=== PATIENT | female | born 1950 | race Caucasian/White ===

== ENCOUNTER 2016-07-09 17:54 | Emergency (ER) | payer OTHER ==
[2016-07-09 18:07] VITALS: O2SAT 95
--- NOTE | 2016-07-09 18:38 | EDPHY ---
H & P Time Seen by Provider: 07/09/16 18:13 HPI/ROS: CHIEF COMPLAINT: Headache, facial pain HISTORY OF PRESENT ILLNESS: Patient is a 65-year-old female who presents emergency department after having a mechanical fall on Tuesday. Patient states she tripped and landed on the left side of her face. She did not lose consciousness. She has had no nausea or vomiting. She has had a gradual increase in headache. She also complains of mild left facial pain. Denies malocclusion. No neck pain. No weakness or numbness. REVIEW OF SYSTEMS: My complete review of systems is negative except as mentioned in the HPI. Past Medical/Surgical History: Includes bipolar disorder, anxiety, depression, hypothyroidism Social history: The patient denies smoking or drinking Smoking Status: Never smoked Physical Exam: Vitals noted GENERAL: Well-appearing, in no acute distress, alert. HEAD: No evidence of trauma. EYES: PERRLA, EOMI, normal to inspection. ENT: Airway intact, no dental or oral injury, no malocclusion, no hemotympanum , normal external examination. Patient has a mild abrasion to her left upper lip. Mild tenderness to palpation over her left forehead and left zygomatic arch. NECK: The trachea is midline. There is no crepitus. The C-spine is nontender. NEXUS criteria is negative (no midline tenderness, no distracting injury, no altered mental status, no recent alcohol use, no focal neurologic deficit). RESPIRATORY: Clear to auscultation bilaterally, no rales, rhonchi or wheezing. There is no crepitus or palpable rib fractures. CVS: Regular rate and rhythm, no rubs, murmurs, or gallops. ABDOMEN: Soft, nontender, nondistended, normal bowel sounds, no bruising or abrasions. Pelvis: Stable. No tenderness palpation. Hips full range of motion. GENITAL/RECTAL: Normal external exam. BACK: Normal to inspection, no spinal tenderness, no spinal step off, no notable bruising or abrasions. SKIN: Normal color, warm, dry. No pallor or diaphoresis. EXTREMITIES: Atraumatic, neurovascularly intact distally in all extremities, pelvis is stable , hips with full range of motion, moves all extremities freely. NEURO/PSYCH: Alert and oriented x 3, GCS 15, normal mood and affect, normal motor sensory exam. Constitutional: Initial Vital Signs Temperature (C) 36.5 C 07/09/16 17:57 Heart Rate 74 07/09/16 17:57 Respiratory Rate 18 07/09/16 17:57 Blood Pressure 141/92 H 07/09/16 17:57 O2 Sat (%) 95 07/09/16 17:57 O2 Delivery Mode Room Air Allergies/Adverse Reactions: Sulfa (Sulfonamide Antibiotics) Allergy (Unknown, Verified 07/09/16 18:01) as child Home Medications: Medication Instructions Recorded Celexa 08/26/13 LaMICtal 08/26/13 Atorvastatin Calcium [Lipitor 40 40 mg PO 07/09/16 mg (*)] Levothyroxine [Synthroid 100 mcg 100 mcg PO DAILY06 07/09/16 (*)] Medical Decision Making ED Course/Re-evaluation: In the emergency department I discussed possible etiologies with the patient. She consented to head and maxillofacial CT. Head CT/maxillofacial CT: No acute disease noted. Please refer the dictated report by the radiologist. Dr. Mares. I discussed the results with the patient. I answered all her questions. She was given warnings prior to leaving. She will return with worsening symptoms. Differential Diagnosis: My differential includes but is not limited to facial contusion, facial fracture , subarachnoid hemorrhage, subdural hematoma, epidural hematoma Departure - Departure Disposition: Home, Routine, Self-Care Clinical Impression: Facial contusion Qualifiers: Encounter type: initial encounter Qualified Code(s): S00.83XA - Contusion of other part of head, initial encounter Condition: Good Instructions: Facial Contusion (ED) Additional Instructions: Return with increasing headache, vomiting, weakness, numbness or any other concerns. Referrals: Prince Hedrick MD [Primary Care Provider] - 2-3 days, call for appt.
[2016-07-09 19:19] VITALS: BP 133/73; PULSE 67; RESP 20; TEMP 98.2
== END 2016-07-09 19:21 | disposition home or self-care (01) ==
DX: S00.83XA Contusion of other part of head, initial encounter (principal); W01.198A Fall on same level from slipping, tripping and stumbling with subsequent striking against other object, initial encounter

== ENCOUNTER 2016-11-28 10:23 | Emergency (ER) | payer OTHER ==
[2016-11-28 10:28] VITALS: BP 108/73; PULSE 81; RESP 16; TEMP 98.1; O2SAT 93
--- NOTE | 2016-11-28 11:19 | EDPHY ---
H & P Time Seen by Provider: 11/28/16 10:51 HPI/ROS: CHIEF COMPLAINT: Cat bite right index finger HISTORY OF PRESENT ILLNESS: 66-year-old female presents to the emergency department by private vehicle complains of cat bite to the right index finger. Patient was at home in [place] was startled by something and accidentally bit her right index finger. The incident happened last night around 7:30 p.m.. When she woke up this morning it was more swollen and presented to the emergency department for evaluation. She believes her tetanus shot is current. Her CT is up-to-date on vaccinations. ROS: She denies numbness or tingling in her fingers, retained foreign body, pain in her right wrist, pain or swelling in her axilla, fevers or chills. Past Medical/Surgical History: Bipolar, anxiety, depression, hypothyroidism Social History: and lives in [place] Smoking Status: Never smoked Physical Exam: On examination the patient has puncture wound to the dorsal aspect of her right index finger overlying proximal phalanx. There is also small puncture wound to the palmar aspect overlying the proximal phalanx of the index finger. It is mildly tender to palpate. No palpable retained foreign bodies. Mildly warm to the touch. The redness extends into the 2nd MCP joint. No palpable bony tenderness. No lymphangitis. Full range of motion of her fingers as well as full range of motion of her right wrist. Normal sensation to light touch with normal 2 point discrimination. Strong radial pulse at the right wrist. Constitutional: Initial Vital Signs Temperature (C) 36.7 C 11/28/16 10:26 Heart Rate 81 11/28/16 10:26 Respiratory Rate 16 11/28/16 10:26 Blood Pressure 108/73 11/28/16 10:26 O2 Sat (%) 93 11/28/16 10:26 O2 Delivery Mode Room Air Allergies/Adverse Reactions: Sulfa (Sulfonamide Antibiotics) Allergy (Unknown, Verified 07/09/16 18:01) as child Home Medications: Medication Instructions Recorded Celexa 08/26/13 LaMICtal 08/26/13 Atorvastatin Calcium [Lipitor 40 40 mg PO 07/09/16 mg (*)] Levothyroxine [Synthroid 100 mcg 100 mcg PO DAILY06 07/09/16 (*)] Amoxicillin/Clavulanate Pot 875 mg PO BID #14 tab 11/28/16 [Augmentin 875 mg tab] MDM/Departure - [facility] ED Course/Re-evaluation: 66-year-old female presents to the emergency department with cat bite to her right index finger. Patient will be started on Augmentin. I do not think IV antibiotics are indicated. She was given strict instructions to return if she developed lymphangitis, pain in her axilla, fevers or chills, or if she felt worse in any way. - Depart Disposition: Home, Routine, Self-Care Clinical Impression: Cat bite right index finger Condition: Good Instructions: Animal Bite (ED), Acute Wounds (ED) Additional Instructions: Soak your finger in warm water for 15-20 minutes every 2-3 hours especially today and tomorrow. Apply antibiotic ointment after each soaking as discussed. Ibuprofen 600 mg every 8 hours as needed for pain. Augmentin twice daily for 1 week. Return to the emergency department if he developed red streaking up your arm, pain in your right armpit, fever, or if you feel worse in any way. Prescriptions: Amoxicillin/Clavulanate Pot [Augmentin 875 mg tab] 875 mg PO BID #14 tab Referrals: Prince Hedrick MD [Primary Care Provider] - As per Instructions
== END 2016-11-28 11:41 | disposition home or self-care (01) ==
DX: S61.250A Open bite of right index finger without damage to nail, initial encounter (principal); W55.01XA Bitten by cat, initial encounter; Y92.009 Unspecified place in unspecified non-institutional (private) residence as the place of occurrence of the external cause